=== PATIENT | male | born 1990 | race Asian ===

== ENCOUNTER 2018-06-01 10:25 | Inpatient (IN) | payer BC ==
[2018-06-01] MEDS ORDERED: Lidocaine 2% VISCOUS* 15 ML UDC PO ONE (12:35)
[2018-06-01] MEDS ORDERED: Al Hydrox/Mg Hydrox/Simet LIQ* 30 ML UDC PO ONE (12:35)
[2018-06-01 13:05] LABS: Hematocrit 43 % (42-52); Hemoglobin 14.3 g/dl (14.0-18.0); Mean Corpuscular HGB Conc 34 g/dl (31-36); Mean Corpuscular Hemoglobin 30 pg (27-31); Mean Corpuscular Volume 89 fL (80-94); Mean Platelet Volume 9.7 um3 (7.4-10.4); Platelet Count 171 10^3/ul (150-450); Red Blood Count 4.76 10^6/ul (4.00-5.40); Red Cell Distribution Width 13 % (10.5-15); White Blood Count 6.4 10^3/ul (3.5-10.8)
[2018-06-01 13:21] LABS: EGFR Non-African American 94.4 (>60)
--- NOTE | 2018-06-01 13:50 | ED ---
HPI Chest Pain - HPI Summary HPI Summary: Patient presents with left-sided chest pain radiating into his jaw and into his left arm/axillary region. This started at 9:45 this morning. 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 In the midst of this, he struck his Lt thumb on a metal box and seemed to be okay however minutes later the symptoms came on. He reports the metal box did not carry an electrical current and in fact the patient's girlfriend's father had removed the cover of the same box last night without any electrical conduction issues as well. He admits he took an anti-histamine prior to heading over there to work this morning as he's mildly allergic to their dog. He's taken an anti- histamine in the past w/o sx. Patient reports he's had these same sx in the past with B/L jaw pain, chest pain and shortness of breath. Once a few weeks ago and before that 3 years ago. He is not sure what triggered this then nor is he clear about why he had it today. He is also not clear about the length of time his symptoms lasted - possibly 30 minutes or maybe 15? He reports he took ibuprofen prior to arrival and has not had any pain in his jaw or arm since. He does have some mild residual burning sensation within his Lt chest. He is breathing easily and no SOB since episode this morning. His left chest is also tender to palpation and he admits to bench pressing 3 days ago. 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 He reports a reverse curvature in his cervical spine and headaches from time to time but rarely. No previous history of TMJ however he does still have his wisdom teeth and they cause some pain from time to time. He also denies any personal cardiac history although admits his grandfather in his 50's from a cardiac illness which he's not clear about. Father had HTN - no LA. Patient reports he went through an extensive workup for hypoglycemia last year. As result of his tests, it was decided he would do better with a high fat, high-protein, low-carb diet. Otherwise, he reports his sugar will spike up and then drop causing him to become hypoglycemic. He has not had any episodes like this since he's changed his diet. He also admits to eating acidic and spicy foods which can cause some indigestion for him at times. He's not sure if his symptoms today were triggered by indigestion as he had 2 cups of coffee this morning along with egg whites and spinach with hot sauce. He also admits he had spicy black morse burgers for dinner last night. Pt denies smoking, drinking ETOH and illicit drug use. He drinks 1-2 c coffee per day. Exercises. Denies recent travel, trauma, hormone use, cancer or hematological d/o, clots/PE/DVT. No personal or fam h/o aneurysm. - History of Current Complaint Chief Complaint: EDChestPainROMI Time Seen by Provider: 06/01/18 11:38 Hx Obtained From: Patient, Family/Rn Wellness - female partner Pain Intensity: 10 - Allergy/Home Medications Allergies/Adverse Reactions: Allergies Allergy/AdvReac Type Severity Reaction Status Date / Time No Known Allergies Allergy Verified 06/01/18 10:33 PMH/Surg Hx/FS Hx/Imm Hx Previously Healthy: Yes Endocrine/Hematology History: Reports: Hx Thyroid Disease - has been told to "monitor his levels" - no structural abnormalities, Other Endocrine/ Hematological Disorders - hypoglycemia Denies: Hx Anticoagulant Therapy, Hx Blood Disorders, Hx Diabetes, Hx Anemia , Hx Unexplained Bleeding, Hx Coagulopothy Cardiovascular History: Denies: Hx Aneurysm, Hx Angina, Hx Atrial Fibrillation, Hx Cardiac Arrest, Hx Congenital Heart Disease, Hx Coronary Artery Disease, Hx Deep Vein Thrombosis , Hx Embolism, Hx Hypercholesterolemia, Hx Hypertension, Hx Myocardial Infarction, Hx Peripheral Vascular Disease, Hx Syncope, Hx Valvular Heart Disease Respiratory History: Reports: Hx Seasonal Allergies - dogs Denies: Hx Asthma, Hx Chronic Obstructive Pulmonary Disease (COPD), Hx Pulmonary Embolism GI History: Reports: Hx Gastroesophageal Reflux Disease - doesn't treat Denies: Hx Cirrhosis, Hx Crohn's Disease, Hx Diverticulosis, Hx Gall Bladder Disease, Hx Gastrointestinal Bleed, Hx Hiatal Hernia, Hx Irritable Bowel, Hx Obstructive Bowel, Hx Ulcer Musculoskeletal History: Reports: Other Musculoskeletal History - neck muscle issues Sensory History: Reports: Hx Contacts or Glasses Opthamlomology History: Reports: Hx Contacts or Glasses Neurological History: Reports: Other Neuro Impairments/Disorders - " intermittent (peripheral) nerve issues" Denies: Hx Migraine Infectious Disease History: No Infectious Disease History: Denies: Traveled Outside the [place] in Last 30 Days - Family History Known Family History: Positive: Cardiac Disease - grandfather - in 50's; father - HTN - Social History Occupation: Employed Full-time Lives: With Family Alcohol Use: None Hx Substance Use: No Substance Use Type: Reports: None Hx Tobacco Use: No Smoking Status (MU): Never Smoked Tobacco Review of Systems Constitutional: Negative Negative: Fatigue Eyes: Negative Negative: Photophobia ENT: Other - jaw pain Positive: Nasal Discharge - mild. Negative: Dental Pain, Ear Ache Positive: Chest Pain. Negative: Palpitations Respiratory: Negative Gastrointestinal: Negative Negative: Vomiting, Nausea Positive: no symptoms reported Positive: Arthralgia, Myalgia Skin: Negative Neurological: Negative Psychological: Normal All Other Systems Reviewed And Are Negative: Yes Physical Exam Triage Information Reviewed: Yes Vital Signs On Initial Exam: Initial Vitals Temp Pulse Resp BP Pulse Ox 98.3 F 70 16 138/90 100 06/01/18 10:29 06/01/18 10:29 06/01/18 10:29 06/01/18 10:29 06/01/18 10:29 Vital Signs Reviewed: Yes Appearance: Positive: Well-Appearing, No Pain Distress, Well-Nourished Skin: Positive: Warm, Skin Color Reflects Adequate Perfusion, Dry Head/Face: Positive: Normal Head/Face Inspection Eyes: Positive: Normal, EOMI, Conjunctiva Clear ENT: Positive: Normal ENT inspection, Hearing grossly normal, Pharynx normal - mucosa moist Neck: Positive: Supple, Other: - mild TTP of paracervical mm and Lt masseter Respiratory/Lung Sounds: Positive: Clear to Auscultation, Breath Sounds Present. Negative: Rales, Rhonchi, Wheezes Cardiovascular: Positive: Normal, RRR, Pulses are Symmetrical in both Upper and Lower Extremities, S1, S2. Negative: Murmur, Rub, Leg Edema Left, Leg Edema Right Abdomen Description: Positive: Nontender - mild epigastric discomfort, No Organomegaly, Soft. Negative: Hernia @ Bowel Sounds: Positive: Present Musculoskeletal: Positive: Strength/ROM Intact, Pain @ - Lt chest pectoralis m w / mild TTP near sternum - no other areas are TTP Neurological: Positive: Normal, Sensory/Motor Intact, Alert, Oriented to Person Place, Time, CN Intact II-III, Reflexes Intact Psychiatric: Positive: Normal - concerned but polite, calm and cooperative Diagnostics - Vital Signs Vital Signs Temp Pulse Resp BP Pulse Ox 06/01/18 10:29 98.3 F 70 16 138/90 100 - Laboratory Lab Results: Lab Results 06/01/18 06/01/18 Range/Units 12:58 12:58 WBC 6.4 (3.5-10.8) 10^3/ul RBC 4.76 (4.00-5.40) 10^6/ul Hgb 14.3 (14.0-18.0) g/dl Hct 43 (42-52) % MCV 89 (80-94) fL MCH 30 (27-31) pg MCHC 34 (31-36) g/dl RDW 13 (10.5-15) % Plt Count 171 (150-450) 10^3/ul MPV 9.7 (7.4-10.4) um3 Sodium 138 (135-145) mmol/L Potassium 3.5 (3.5-5.0) mmol/L Chloride 105 (101-111) mmol/L Carbon Dioxide 25 (22-32) mmol/L Anion Gap 8 (2-11) mmol/L BUN 16 (6-24) mg/dL Creatinine 0.95 (0.67-1.17) mg/dL Est GFR ( Amer) 114.2 (>60) Est GFR (Non-Af Amer) 94.4 (>60) BUN/Creatinine Ratio 16.8 (8-20) Glucose 88 (70-100) mg/dL Calcium 10.0 (8.6-10.3) mg/dL Magnesium 1.9 (1.9-2.7) mg/dL TSH Pending Result Diagrams: 06/01/18 12:58 06/01/18 12:58 Lab Statement: Any lab studies that have been ordered have been reviewed, and results considered in the medical decision making process. Re-Evaluation - Re-Evaluation First Eval Change: Improved - pt reports Lt side CP has almost completely resolved w/ GI cocktail - he had some belching which he believes helped as well - no return of other sx while here Chest Pain Course/Dx - Course Course Of Treatment: Pt presents w/ Lt side CP, jaw pain and Lt arm w/ brief SOB pain at 9:45am today. Discussed these are classic sx for cardiac pathology and w/u should be performed. Discussed diff dx as well. He and female aircraft cleaning supervisor are requesting as minimal of testing as possible so we agreed upon CBC w/o diff , BMP, Mag, TSH and troponin level at 4 hours s/p CP since he was feeling much better although they were aware this is not ideal test panel and we could miss some things by doing this including early LA, PE, dissection, pneumothorax, etc. They also wanted to try the GI cocktail to see if this relieved his sx as he felt this was most likely muscle soreness and maybe some GERD. GI cocktail did help but 4 hour troponin returned at 0.43. His ECG was initially read as NSR w/ early repol in V2, V3. Repeat ECG is same or slightly better at 15:00 and no old ECG for comparison beyond today. Given these results, a D-dimer was added and a troponin was repeated to test for false positive. Pt and female aircraft cleaning supervisor aware of need to proceed w/ testing and that there is now higher concern for LA, PE. Discussed case w/ Dr. Johnson. Initially we ordered heparin for LA however after speaking w/ Dr. Kaur, will hold heparin and r/o PE, pericarditis. Advised to administer 3 adult doses ASA for anti-inflammatory effect as add CRP, ESR to assess for inflammation. A CTA will be added as well as although D-dimer is neg, PE cannot be completely ruled out. Discussed w/ pt who agrees to further testing and admission. Dr. Kaur surmises if a definitive cause of elevated troponins is not identified, an echocardiogram may be performed tomorrow. Discussed case w/ Dr. Perez who agrees to admit. Pt comfortable and vitals stable throughout his care. O2 and nitro were not ordered based on his lack of HTN, hypoxia and improved CP. Critical care time: 45 minutes - Diagnoses Provider Diagnoses: Chest pain, Elevated troponin level Discharge - Sign-Out/Discharge Documenting (check all that apply): Patient Departure - Discharge Plan Condition: Improved Disposition: ADMITTED TO [facility] - Billing Disposition and Condition Condition: IMPROVED Disposition: Admitted to [facility]
[2018-06-01] MEDS ORDERED: Aspirin 81 mg CHEW TAB* 81 MG TAB.CHEW PO ONE (14:58)
[2018-06-01] MEDS ORDERED: Heparin DRIP 25,000 UNITS(*) 25,000 UNITS/500 ML BAG IV SCH (16:00)
[2018-06-01] MEDS ORDERED: Aspirin TAB* 325 MG PO ONE (16:09)
[2018-06-01] MEDS ORDERED: Iohexol 350* (CONTRAST) 500 ML MDV IV ONE (16:38)
[2018-06-01] MEDS ORDERED: Acetaminophen TAB* 325 MG PO PRN (16:53)
--- NOTE | 2018-06-01 17:21 | RAD ---
INDICATION: Chest pain, shortness of breath left arm pain. COMPARISON: There are no prior studies available for comparison. TECHNIQUE: A CT angiogram of the chest was performed with intravenous following intravenous injection of 64 ml of Omnipaque 350 nonionic contrast. Contiguous axial sections were obtained from the lung apices through the lung bases. Images were reconstructed in the coronal and sagittal planes. FINDINGS: There is streak and motion artifact limiting the exam slightly. No intraluminal filling defect or embolism is seen within the pulmonary arteries. The heart is within normal limits in size. No pericardial effusion is present. The thoracic aorta is normal in caliber and demonstrates homogeneous contrast opacification. There is soft tissue density in the anterior mediastinum most consistent with residual thymus tissue. No significant enlarged mediastinal or hilar lymph nodes are seen. The lungs are clear. No pleural effusion is seen. There is a dorsal lumbar scoliosis convex toward the right in the dorsal region. No significant focal osseous abnormality is seen. IMPRESSION: SLIGHTLY LIMITED STUDY, NO EVIDENCE FOR PULMONARY EMBOLISM OR AORTIC DISSECTION.
[2018-06-01] MEDS ORDERED: Aspirin TAB* 325 MG PO PRN (17:40)
--- NOTE | 2018-06-01 18:39 | PN ---
Progress Note - Progress Note Date of Service: 06/01/18 Note: Note is made of continued troponin elevation. Patient reports feeling better, has persistent intermittent mild chest discomfort. Dr. Kaur updated. No new orders at this time. Plan for continued trending of troponins with EKGs. Patient will have aspirin for chest pain as needed. Plan for echo in AM.
--- NOTE | 2018-06-01 19:15 | HP ---
CC: Dr. Durbin* [facility] MEDICINE HISTORY AND PHYSICAL: DATE OF ADMISSION: 06/01/18 PRIMARY CARE PHYSICIAN: Dr. Durbin. ATTENDING PHYSICIAN: Dr. Talya Bliss* (dictation provided by Martha Dupree NP) . CHIEF COMPLAINT: Chest pain with jaw pain and pain radiating into the left arm. HISTORY OF PRESENT ILLNESS: Mr. Chance is a 28-year-old male with no significant past medical history, who presents today to the hospital after developing jaw pain, shortness of breath, chest tightness and left arm tingling. Mr. Chance states that he is normally very active. He participates in martial arts and also does heavy lifting at the gym frequently. He states with this activity he does not have chest pain, jaw pain or any such as those he experienced today. Today, he was pulling siding off his home. He states that this was not a very strenuous activity and he had only just gotten started, when he suddenly developed a feeling that it was difficult to take a breath. He had pain radiating into his both jaws that was quite intense. He went into the home and sat down and then developed chest tightness and subsequently left arm tingling. He became much more concerned and ultimately came to the hospital for evaluation. He states that his symptoms lasted up until about 40 minutes prior to the time of my examination. He did take ibuprofen at home prior to arrival. He states at this point that he has no pain , but that he does have a sensation of rubbing in the center of his chest when he takes a very deep breath. He does not have any pain when he lays flat and none of the pain seems to be exacerbated by position. The patient states that he has not had any recent illnesses. No cough or upper respiratory infection or nausea, vomiting, diarrhea, abdominal pain. He endorses having similar previous episodes in the past, but they seemed to be somewhat different. He states that about a week ago, he had an episode where he had jaw pain after eating dinner. It was initially thought that this was secondary to wisdom teeth that he has not had extracted yet, but he did notice some chest tightness as well. His notes that he complains of chest tightness at times related to anxiety episodes. Then, he does describe an episode 4 to 5 years ago where he had jaw pain that happened after playing a strenuous game of Frisbee. In the emergency room, Mr. Chance had labs, which showed a first troponin of 0.43, repeat troponin was 0.98. His CRP is less than 1. His ESR is also normal at 8. The remainder of his labs are unremarkable. His vitals are stable. His EKG shows some diffuse minimal ST elevations. PAST MEDICAL HISTORY: History of testicular torsion with surgery. MEDICATIONS: None. ALLERGIES: None. FAMILY HISTORY: The patient reports that his mother has diabetes and dad has hypertension and is on dialysis. His older brother is alive and well. He does not note any history of early heart disease in the family. SOCIAL HISTORY: No report of alcohol, tobacco or drug use. The patient states that his , Lupe, would be his healthcare proxy. REVIEW OF SYSTEMS: A 14-point review of systems was completed with Mr. Chance and all those not mentioned above were negative. PHYSICAL EXAMINATION GENERAL: Mr. Chance is sitting up in the bed with his at the bedside. He is in no acute distress. VITAL SIGNS: Blood pressure 130/49, heart rate 72, temperature 98.3, respiratory rate 15, O2 saturation 100% on room air. LUNGS: Clear to auscultation bilaterally with no accessory muscle use and good aeration. HEART: S1, S2. No murmur or gallop and regular. There is no rub appreciated today. ABDOMEN: Soft, nontender with bowel sounds positive x4. EXTREMITIES: No cyanosis or edema. NEURO: He is alert. He is oriented x3. He moves all extremities equally. There is no facial asymmetry or focal weakness. Extraocular movements are intact. SKIN: Intact. DIAGNOSTIC STUDIES/LAB DATA: WBC 6.4, hemoglobin 14.3, hematocrit 43, platelet count 171. ESR 8. D-dimer less than 200. Sodium 138, potassium 3.5, chloride 105, serum bicarbonate 25, BUN 16, creatinine 0.95, glucose 88. Troponin 0.43, repeated 1 hour later 0.98. CRP less than 1 and TSH 1.85. The EKG initially shows concern for some ST elevations, which are diffuse and minimal that have resolved on the repeat EKG performed in the emergency room. Chest/thorax CTA shows no evidence of pulmonary embolism or aortic dissection. ASSESSMENT AND PLAN: Mr. Chance is a 28-year-old male with no significant past medical history, who presents today to the hospital with concern for chest pain associated with jaw pain, shortness of breath and left arm tingling. In the emergency room, he has been found to have elevated troponins. Our plans are for observation in the hospital for the followin. Chest pain with elevated troponin. The patient has no risk factors for coronary artery disease nor does he have a family history of early heart disease. I reviewed the case with Dr. Kaur on the phone today and he suspects based on the overall picture that this is more likely to be reflective of myopericarditis. Our plans will be to trend the troponins with the next one due now. We will also have repeat EKGs with each troponin. The patient will have a transthoracic echocardiogram tomorrow. For any chest pain that develops he will have aspirin [address] Kaur will provide consultation. 2. DVT prophylaxis with early mobility. 3. Code status is full code. TIME SPENT: Approximately 60 minutes were spent on the admission of this patient, more than half time was spent with him at the bedside reviewing the events leading up to this hospitalization, performing the physical examination, and reviewing my plan of care. MARTHA DUPREE NP [id number]/[facility] #: [id number] JUAN
[2018-06-01] MEDS ORDERED: Nitroglycerin TAB 0.3 MG* 0.3 MG TAB SL PRN (21:41)
[2018-06-01] MEDS: Colchicine* 0.6 MG TAB PO SCH (22:22)
[2018-06-01] MEDS: Pantoprazole TAB (NF) 20 MG TAB PO SCH (22:23)
[2018-06-01] MEDS ORDERED: Aspirin EC TAB* 325 MG PO ONE (22:30)
--- NOTE | 2018-06-02 00:41 | CONS ---
CC: Dr. Durbin CARDIOLOGY CONSULTATION: DATE OF CONSULT: 06/01/18 REASON FOR EVALUATION: Chest pain, troponin elevation. HISTORY OF PRESENT ILLNESS: This is a very pleasant 28-year-old gentleman, who said he was in his usual state of health until about a week ago. He had some pain in his jaw and chest after eating and sitting and watching television. He said it was mild and resolved after 15 minutes. He did well again until today, he said, he got up and was going to help pull some shingles off at his in-laws' house. He said he had a couple cups of coffee and was working on the house. He said he slipped and hit his left thumb on a box on the side of the house. He said it was painful for a couple of minutes and 5 minutes later, he developed some chest tightness, shortness of breath, and jaw discomfort and the tingling of his left arm. He also had some gas and burning sensation with it. He said some burping would help relieve the symptoms, but it persisted that began about 9:45. Because of his symptoms, he decided to come to the emergency room, arrived about 10:45 or so. He had an EKG, which revealed sinus rhythm with ST elevation inferolaterally actually diffusely and was read as early repolarization. Subsequently, he had elevated troponin. In the meantime, his pain gradually resolved. He had taken 3 Motrin before he left for the hospital. By the time he got to the hospital, the worst of the pain was subsiding, the tingling had extended into his left hand. In ER, he got aspirin and a GI cocktail. He said it gradually resolved. After a total of about 3 hours, it was pretty much gone. He did say the pain was worse when he was lying flat for a CT scan and was worse with taking a deep breath, gradually diminished, and he says over the course of the day, it is barely perceptible. Sometimes, he feels when he takes a deep breath, at the end of breath, there is a little bit of irritation, but overall he feels back to normal. He denies any associated fevers, chills, sweats, nausea, vomiting, diarrhea, GI discomfort other than excess gas when he had the symptoms. He is accompanied by his , Lupe, and she denies any symptoms. He does say that he has had other episodes of chest tightness, he said one was about 6 years ago after playing fairly intense game of [place]ago, he developed jaw discomfort and achiness and chest tightness, which resolved after 15 to 30 minutes. He also had a very stressful job 2 years ago. When he said during this stressful job, he would sometime wake up the morning with a sensation of chest tightness, which would resolve over the course of a couple of hours. He said it was milder than the episodes he is having now. He said over the last year, he has had a far less stressful existence. 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 PAST MEDICAL HISTORY: Includes the chest pain as described above testicular torsion requiring surgery chilblains a couple of years ago when he went out in the cold. Mirgraine triggered by bright sunlight rxed with prn excedrin or nsaids. sleep disorder: h/o falling asleep easily after lunch. He had extensive evaluations, which include a sleep study, which he said was minimally abnormal. He did change his diet from carbs to protein at lunchtime and he said these symptoms have resolved. PAST SURGICAL HISTORY: Surgery for torsion of the testicle. MEDICATIONS: He takes no regular medications, but does occasionally take allergy pills and took an antihistamine in the morning before he went to work on the house because he was concerned about allergies to grass and pollen. He took fexofenadine without any vasoconstrictors in it. He takes prn excedrin and ibuprofen. ALLERGIES: He has no known drug allergies. FAMILY HISTORY: Includes mother who has diabetes. Father who has hypertension and diabetes, on dialysis. His paternal grandfather reportedly of cardiac disease in his 40s. Maternal grandfather had strokes in his 80s. SOCIAL HISTORY: He said he drinks 2 to 3 cups of coffee a day. He denies alcohol or recreational drug use. No energy drinks. He is , has no children. 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 His exercise is relatively limited. He occasionally does some weights at the gym once a week and he does some low-pacheco martial arts twice a week. He has stairs in the house, goes up and downstairs without problem. REVIEW OF SYMPTOMS: Review of symptoms x10 was negative except as above. PHYSICAL EXAM: He is a well-developed, thin gentleman, in no apparent distress. Dark skin consistent with his descent. Pulse is 70, blood pressure 111/64. No significant JVD. Carotids are 2+ without bruits. No cervical adenopathy or thyromegaly. Extraocular muscles intact. Sclerae anicteric. Cardiac Exam: S1, S2, with a physiologic split S2. No murmurs, gallops, or rubs. Chest was clear. No CVAT. Abdomen: Bowel sounds present, nontender. Femoral pulses are intact without bruits. Distal pulse intact. Motor strength 5/5 bilaterally. Alert, oriented x3. His weight was 162 pounds. DIAGNOSTIC STUDIES/LAB DATA: Labs include potassium of 3.5, BUN is 16, creatinine 0.95, magnesium 1.9. Initial troponin 0.43, 0.98, and at 1742, 3.18. CRP less than 1. TSH 1.85. Normal CBC. He did have a CT scan, which was low probability for pulmonary embolism. I did look at his coronary arteries; although we can exclude stenosis, there were no definite coroanary calcifications to my reading. His EKG from 1052 again revealed sinus rhythm with diffuse ST elevations of 1 to 2 mm inferiorly, anteriorly, and laterally. The repeat EKG from 1759 revealed some improvement in the ST elevation in III and increase in ST elevation in some other remaining leads. There also appeared to be some ND depression in multiple leads and subtle ND elevation in aVR. IMPRESSION AND PLAN: My impression is that Mr. Chance has a presentation with chest pain and troponin elevation and EKG changes. There are some elements of his story, which are suspicious for and consistent with myopericarditis. 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 Less likely possibilities include coroarny artery dissection and anomalous coronary arteries or stress cardiomyopathy or CAD. I did discuss my findings and plans for further workup with the patient and his and at his request, I discussed via telephone the condition with his brother, who works as a cardiac mangle tender. For the time being, I am recommending the followin. Follow serial troponins, EKGs, sed rate, CRP. 2. We will obtain an echocardiogram to assess wall motion and pericardial effusion. 3. For diagnosis of myopericarditis, we will consider further evaluation of his coronary anatomy either with CT angio or cath. 4. We will also consider possibility of vasomotor dysfunction and consider adding a calcium channel china if vasospasm is suspected. We did discuss about the potential of using calcium channel blockers and p.r.n. nitro sublingual for vasomotor dysfunction as well. Further recommendations will depend on his clinical course. [id number]/[facility] #: [id number] JUAN
--- NOTE | 2018-06-02 09:19 | ECHO ---
Patient: THALIA STACK [facility] Rec#: [id number] : 1990 Date: 06/02/2018 Age: 28y Height: 175.26 cm / 69.0 in Weight: 73.48 kg / 161.9 lbs Sex: M BSA: 1.89 Room#: [facility] Admit Date#: 06/01/2018 Type: Inpatient Referring: Martha Dupree NP Reading: Todd Kaur MD Utility Locate Technician: Tammie Johnson RDCS CC: Gifty LEE,Cali Transthoracic Echocardiogram Indication: Chest pain BP: 100/52 HR: 62 Rhythm: NSR Findings History: Recent chest pain, no known cardiac history. Technical Comments: The study quality is good. Completed at 0900. Left Ventricle: The left ventricular chamber size is normal. There is no left ventricular hypertrophy. Left ventricular systolic function is at the lower limits of normal. The estimated ejection fraction is 50-55%. subtle relative hypokinesis of the mid to distal anterior and apical segments. Normal left ventricular diastolic filling is observed. Left Atrium: The left atrial chamber size is normal. Right Ventricle: The right ventricular cavity size is normal. The right ventricular global systolic function is normal. Right Atrium: The right atrial cavity size is normal. Aortic Valve: The aortic valve is trileaflet. There is no evidence of aortic valve thickening. There is no evidence of aortic regurgitation. There is no evidence of aortic stenosis. Mitral Valve: The mitral valve leaflets do not appear thickened. There is a trace of mitral regurgitation. There is no evidence of mitral stenosis. Tricuspid Valve: The tricuspid valve leaflets are normal. There is a physiologic tricuspid regurgitation. The right ventricular systolic pressure is estimated at 21 mmHg. No pulmonary hypertension is noted. There is no tricuspid stenosis. Pulmonic Valve: The pulmonic valve appears normal. There is a trace pulmonic regurgitation. There is no pulmonic stenosis. Pericardium: There is no significant pericardial effusion. Aorta: There is no dilatation of the ascending aorta. There is no dilatation of the aortic arch. The aortic root is normal in size. Pulmonary Artery: The main pulmonary artery appears normal. Venous: The inferior vena cava is dilated. There is a greater than 50% respiratory change in the inferior vena cava dimension. Summary: There was not any prior study for comparison. Conclusions Left ventricular systolic function is at the lower limits of normal. The estimated ejection fraction is 50-55%; subtle relative hypokinesis of the mid to distal anterior and apical segments. There is a trace of mitral regurgitation. There is a physiologic tricuspid regurgitation. Measurements Name Value Normal Range RVIDd (AP) 2D 2.6 cm (0.9 - 2.6) RVDdMajor (2D) 3.5 cm (2.2 - 4.4) RAd ISD 4CH 4.4 cm (3.4 - 4.9) RA (A4C)W 4 cm (2.9 - 4.6) IVSd (2D) 0.8 cm (0.6 - 1) LVPWd (2D) 0.9 cm (0.6 - 1) LVIDd (2D) 4.8 cm (3.6 - 5.4) LVIDs (2D) 3.2 cm - LV FS (2D) 33 % (25 - 45) Aortic Annulus 2.4 cm (1.4 - 2.6) Ao root diameter (2D) 3.1 cm (2.1 - 3.5) Ascending Ao 2.8 cm (2.1 - 3.4) Aortic arch 2.3 cm (1.8 - 3.4) LA dimension (AP) 2D 3 cm (2.3 - 3.8) LAd ISD 4CH 3.9 cm (2.9 - 5.3) LA ISD 4CH W 3.7 cm (2.5 - 4.5) Name Value Normal Range LA ESV SP 4CH (A/L) 27 ml - LA ESV SP 2CH (A/L) 39 ml - LA ESV BP (A/L) 37 ml - LA ESV BP (A/L) index 20 ml/m2 - LA ESV SP 4CH (MOD) 21 ml - LA ESV SP 2CH (MOD) 34 ml - Name Value Normal Range MV E-wave Vmax 0.55 m/sec - MV deceleration time 219.1 msec - MV A-wave Vmax 0.47 m/sec - MV E:A ratio 1.16 ratio - LV septal e' Vmax 0.12 m/sec - LV lateral e' Vmax 0.17 m/sec - LV E:e' septal ratio 4.58 ratio - LV E:e' lateral ratio 3.24 ratio - Name Value Normal Range AV Vmax 0.9 m/sec - AV VTI 18.57 cm - AV peak gradient 3.27 mmHg - AV mean gradient 1.63 mmHg - LVOT Vmax 0.74 m/sec - LVOT VTI 12.91 cm - LVOT peak gradient 2.23 mmHg - LVOT mean gradient 1.21 mmHg - SHANIQUA Vmax 0.9 m/sec - Name Value Normal Range TR Vmax 1.8 m/sec - TR peak gradient 13 mmHg - RAP 8 mmHg - RVSP 21 mmHg - IVC diameter 2.2 cm - Name Value Normal Range PV Vmax 0.75 m/sec - PV peak gradient 2.31 mmHg -
[2018-06-02] MEDS: Colchicine* 0.6 MG TAB PO SCH ×2 (10:06→22:13)
[2018-06-02] MEDS: Omeprazole CAP* 20 MG PO SCH (10:06)
[2018-06-02] MEDS: Pantoprazole TAB (NF) 20 MG TAB PO SCH (10:07)
[2018-06-02] MEDS ORDERED: NS 0.9% 1000 ML* 500 ML IV SCH (11:45)
[2018-06-02] MEDS: Aspirin EC TAB* 325 MG PO SCH ×2 (12:22→22:13)
--- NOTE | 2018-06-02 16:04 | PN ---
Subjective Date of Service: 06/02/18 Interval History: No more chest pain. Feels good. No orthopnea, BARBOSA, cough, sore throat. Objective Active Medications: Acetaminophen (Tylenol Tab*) 650 mg PO Q6H PRN PRN Reason: PAIN Aspirin (Ecotrin Ec Tab*) 650 mg PO TID [facility] Stop: 06/07/18 23:59 Last Admin: 06/02/18 12:22 Dose: 650 mg Colchicine (Colcrys*) 0.6 mg PO BID [facility] Last Admin: 06/02/18 10:06 Dose: 0.6 mg Sodium Chloride (Ns 0.9% 1000 Ml*) 1,000 mls @ 100 mls/hr IV .per rate [facility] Nitroglycerin (Nitroglycerin Tab 0.3 Mg*) 0.3 mg SL .Q5MIN PRN PRN Reason: ANGINA Omeprazole (Prilosec Cap*) 20 mg PO DAILY@0730 [facility] Last Admin: 06/02/18 10:06 Dose: 20 mg Vital Signs - 8 hr 06/02/18 11:39 Temperature 98.5 F Pulse Rate 76 Respiratory 12 Rate Blood Pressure 117/66 (mmHg) O2 Sat by Pulse 97 Oximetry Oxygen Devices in Use Now: None Appearance: well appearing young man Eyes: No Scleral Icterus Ears/Nose/Mouth/Throat: NL Teeth, Lips, Gums Neck: NL Appearance and Movements; NL JVP Respiratory: Symmetrical Chest Expansion and Respiratory Effort, Clear to Auscultation Cardiovascular: NL Sounds; No Murmurs; No JVD, RRR, - - no rub Abdominal: NL Sounds; No Tenderness; No Distention Lymphatic: No Cervical Adenopathy Extremities: No Edema Skin: No Rash or Ulcers Neurological: Alert and Oriented x 3 Result Diagrams: 06/01/18 12:58 06/02/18 05:54 Additional Lab and Data: Lab Results 06/01/18 06/01/18 Range/Units 12:58 12:58 WBC 6.4 (3.5-10.8) 10^3/ul RBC 4.76 (4.00-5.40) 10^6/ul Hgb 14.3 (14.0-18.0) g/dl Hct 43 (42-52) % MCV 89 (80-94) fL MCH 30 (27-31) pg MCHC 34 (31-36) g/dl RDW 13 (10.5-15) % Plt Count 171 (150-450) 10^3/ul MPV 9.7 (7.4-10.4) um3 Sodium 138 (135-145) mmol/L Potassium 3.5 (3.5-5.0) mmol/L Chloride 105 (101-111) mmol/L Carbon Dioxide 25 (22-32) mmol/L Anion Gap 8 (2-11) mmol/L BUN 16 (6-24) mg/dL Creatinine 0.95 (0.67-1.17) mg/dL Est GFR ( Amer) 114.2 (>60) Est GFR (Non-Af Amer) 94.4 (>60) BUN/Creatinine Ratio 16.8 (8-20) Glucose 88 (70-100) mg/dL Calcium 10.0 (8.6-10.3) mg/dL Magnesium 1.9 (1.9-2.7) mg/dL TSH Pending Assess/Plan/Problems-Billing Assessment: 28 year old man with history of migraines admitted with chest pain, found to have elevated troponins. - Patient Problems (1) Myopericarditis Current Visit: Yes Status: Acute Code(s): I31.9 - DISEASE OF PERICARDIUM, UNSPECIFIED SNOMED Code(s): 502128833 Comment: plan for colchicine and aspirin atypical with normal inflammatory markers and no preceding viral illness, so plan for [facility] tomorrow to look for vasospasm, dissection, and myocarditis
[2018-06-03] MEDS: NS 0.9% 1000 ML* 1,000 ML IV SCH ×2 (08:00→17:48)
[2018-06-03] MEDS: Omeprazole CAP* 20 MG PO SCH (10:10)
[2018-06-03] MEDS: Aspirin EC TAB* 325 MG PO SCH ×2 (10:16→15:03)
[2018-06-03] MEDS: Colchicine* 0.6 MG TAB PO SCH (10:39)
[2018-06-03] MEDS ORDERED: Heparin 2 UNITS/ML IVPREMIX* 2,000 ML IV ONE (11:04)
[2018-06-03] MEDS ORDERED: Lidocaine 1%* 5 ML VIAL ONE ×2 (11:04→11:50)
[2018-06-03] MEDS ORDERED: Iohexol 350 (CONTRAST) 200 ML MDV IV ONE (11:05)
[2018-06-03] MEDS ORDERED: Midazolam* 1 MG/ML 10 ML VIAL (10 MG) ONE (11:06)
[2018-06-03] MEDS ORDERED: fentaNYL* 50 MCG/ML 2 ML VIAL (100 MCG VIAL) ONE (11:06)
[2018-06-03] MEDS ORDERED: nitroGLYCERIN DRIP* 25,000 MCG/250 ML BTL ONE (11:07)
[2018-06-03] MEDS ORDERED: VERAPAMIL 2.5 MG/ML 2 ML VIAL ** 5 mg/2 ml ONE (11:07)
[2018-06-03] MEDS ORDERED: Heparin(*) 1000 UNIT/ML 10 ML VIAL CATH LAB IV ONE (11:07)
--- NOTE | 2018-06-03 12:18 | PN ---
Subjective Date of Service: 06/03/18 Interval History: Pt reported Chest Discomfort this morning which resolved when he sat forward. he denies any further CP. He underwent cardiac cath this am and is currently laying flat on his back per protocol - laying flat he denies CP. Overall he reports he "feels fine". He Denies any pain. Brother and at bedside. We discussed again his history and chain of events leading up to coming to the hospital. Objective Active Medications: Acetaminophen (Tylenol Tab*) 650 mg PO Q6H PRN PRN Reason: PAIN Aspirin (Ecotrin Ec Tab*) 650 mg PO TID [facility] Stop: 06/07/18 23:59 Last Admin: 06/03/18 10:16 Dose: 650 mg Colchicine (Colcrys*) 0.6 mg PO BID [facility] Last Admin: 06/03/18 10:39 Dose: Not Given Sodium Chloride (Ns 0.9% 1000 Ml*) 1,000 mls @ 100 mls/hr IV .per rate [facility] Last Admin: 06/03/18 08:00 Dose: 100 mls/hr Nitroglycerin (Nitroglycerin Tab 0.3 Mg*) 0.3 mg SL .Q5MIN PRN PRN Reason: ANGINA Omeprazole (Prilosec Cap*) 20 mg PO DAILY@0730 [facility] Last Admin: 06/03/18 10:10 Dose: Not Given Vital Signs - 8 hr 06/03/18 07:53 Temperature 98.2 F Pulse Rate 66 Respiratory 16 Rate Blood Pressure 111/61 (mmHg) O2 Sat by Pulse 100 Oximetry Oxygen Devices in Use Now: None Appearance: well developed 28 yo male laying flat in bed A+O x3 in NAD Eyes: No Scleral Icterus, PERRLA Ears/Nose/Mouth/Throat: NL Teeth, Lips, Gums, Mucous Membranes Moist Neck: NL Appearance and Movements; NL JVP Respiratory: Symmetrical Chest Expansion and Respiratory Effort, Clear to Auscultation Cardiovascular: NL Sounds; No Murmurs; No JVD, RRR, No Edema, - - good pulses throughout in LE - warm, well perfused Abdominal: NL Sounds; No Tenderness; No Distention Extremities: No Edema, No Clubbing, Cyanosis Skin: No Rash or Ulcers, No Nodules or Sclerosis Neurological: Alert and Oriented x 3, NL Sensation Result Diagrams: 06/03/18 13:19 06/03/18 13:19 Additional Lab and Data: Lab Results 06/01/18 06/01/18 Range/Units 12:58 12:58 WBC 6.4 (3.5-10.8) 10^3/ul RBC 4.76 (4.00-5.40) 10^6/ul Hgb 14.3 (14.0-18.0) g/dl Hct 43 (42-52) % MCV 89 (80-94) fL MCH 30 (27-31) pg MCHC 34 (31-36) g/dl RDW 13 (10.5-15) % Plt Count 171 (150-450) 10^3/ul MPV 9.7 (7.4-10.4) um3 Sodium 138 (135-145) mmol/L Potassium 3.5 (3.5-5.0) mmol/L Chloride 105 (101-111) mmol/L Carbon Dioxide 25 (22-32) mmol/L Anion Gap 8 (2-11) mmol/L BUN 16 (6-24) mg/dL Creatinine 0.95 (0.67-1.17) mg/dL Est GFR ( Amer) 114.2 (>60) Est GFR (Non-Af Amer) 94.4 (>60) BUN/Creatinine Ratio 16.8 (8-20) Glucose 88 (70-100) mg/dL Calcium 10.0 (8.6-10.3) mg/dL Magnesium 1.9 (1.9-2.7) mg/dL TSH Pending Assess/Plan/Problems-Billing Assessment: 28 year old man with history of migraines admitted with chest pain, found to have elevated troponins. - Patient Problems (1) Myopericarditis Comment: Unclear etiology - atypical with normal inflammatory markers and no preceding viral illness. Trops teaked 5.42 now trending down. cardiac catherization today with Dr. Jackson showing no disease in the major arteries - in discussion with Dr. Jackson it is possible there could be some small vessle disease but unclear. Recommended giving 1x dose of cardizem CD 120 mg toinght and if he tolerates it will continue. Start atorvastatin. Will continue colchicine and decrease aspirin Dr. Jackson recommends a cardiac nuclear stress test at some point HEMALATHA, lyme serology pending repeat labs in am (2) DVT prophylaxis Status and Disposition: OBV - switch to inpatient for elevated troponins/myopericarditis .
[2018-06-03] MEDS ORDERED: NS 0.9% 1000 ML* 1,000 ML IV SCH (12:45)
[2018-06-03 13:32] LABS: ABS Basophils 0 10^3/ul (0-0.2); ABS Eosinophils 0.2 10^3/ul (0-0.6); ABS Lymphocytes 1.7 10^3/ul (1.0-4.8); ABS Monocytes 0.7 10^3/ul (0-0.8); ABS Nucleated RBC 0 10^3/ul; Eosinophil % 2.5 % (0-6); Hematocrit 42 % (42-52); Hemoglobin 14.2 g/dl (14.0-18.0); Lymphocyte % 19.9 % (25-47); Mean Corpuscular HGB Conc 34 g/dl (31-36); Mean Corpuscular Hemoglobin 30 pg (27-31); Mean Corpuscular Volume 90 fL (80-94); Mean Platelet Volume 10.2 um3 (7.4-10.4); Nucleated Red Blood Cells % 0.1; Platelet Count 165 10^3/ul (150-450); Red Blood Count 4.71 10^6/ul (4.00-5.40); Red Cell Distribution Width 13 % (10.5-15); White Blood Count 8.7 10^3/ul (3.5-10.8)
[2018-06-03 13:47] LABS: EGFR Non-African American 105.9 (>60)
[2018-06-03] MEDS ORDERED: Diltiazem CD CAP* 120 MG PO ONE (18:11)
[2018-06-03] MEDS ORDERED: Diltiazem TAB* 30 MG PO SCH (20:00)
[2018-06-03] MEDS ORDERED: Colchicine* 0.6 MG TAB PO SCH (21:00)
[2018-06-03] MEDS ORDERED: Atorvastatin* 20 MG TAB PO SCH (21:00)
--- NOTE | 2018-06-03 22:51 | CATH ---
CC: Dr. Cali Durbin; Dr. Todd Kaur of [facility] CARDIAC CATHETERIZATION REPORT: DATE OF PROCEDURE: 06/03/18 INDICATION FOR THE PROCEDURE: The patient with abnormal troponin with chest discomfort suggesting an acute coronary syndrome. PROCEDURE: Coronary arteriography, left heart catheterization, left ventriculography. PRECARDIAC CATHETERIZATION LABORATORY RESULTS: Hemoglobin and hematocrit of 14.3 and 43 with a platelet count of 171,000. BUN and creatinine of 17 and 1.0. Sodium 141, potassium 4.4, chloride 109, bicarb 22. EQUIPMENT UTILIZED: 1. A 11 cm, 5-[place] Adeline sheath for the right femoral approach. 2. Diagnostic coronary catheters: FL4 and FR4, 5-[place] diagnostic catheters. 3. Guidewire with a 175 length, 0.035 J-tipped guidewire. 4. The left heart catheterization catheter was a 5-[place], 145-degree angled pigtail catheter. 5. The closure device technique was a 5-[place] Mynx closure device. DESCRIPTION OF PROCEDURE: The patient was interviewed and examined on the floor of the hospital where the risks and benefits were explained. He understood and wished to proceed. He was brought to the cardiovascular laboratory where a formal time- out was performed. Of note, the radial artery had already been assessed under ultrasound and initially found to be acceptable as an approach. The right radial artery area and the right femoral and left femoral artery areas were prepped and draped in sterile fashion. Under ultrasound guidance, attempts were made to cannulate the right radial artery, but were unsuccessful with just needle approach. No introducer was ever placed. This approach was aborted with the right femoral artery approach then pursued. The right femoral artery area was anesthetized with 1% lidocaine. The right femoral artery was cannulated using an anterior only wall stick. The introducer was placed, the diagnostic catheters were utilized followed by the pigtail catheter for left-heart catheterization. Left ventriculography was performed utilizing a total of 24 cc of Omnipaque dye at a rate of 12 cc/sec. The catheter was then pulled back across the aortic valve to recheck gradient. At the end of the case, an injection was made into the right femoral artery sheath to assess eligibility to utilize closure device. It was found to be acceptable for this and as such, a 5-[place] Mynx closure device was deployed with good hemostasis. The total contrast used was 75 cc of Omnipaque dye. The radiation exposure included 5.1 minutes of fluoro time. The air kerma radiation was 474 milligray. The DAP radiation was 2966 microgray per metered squared. RESULTS: HEMODYNAMIC DATA: Left heart catheterization - revealed central aortic pressure of 106/64 with a mean of 84, left ventricular pressure 108 over left ventricular end diastolic pressure of 15. LEFT VENTRICULOGRAPHY: Performed in the NEW projection revealed symmetrical contraction of the left ventricle. There were no significant focal wall motion abnormality. The overall ejection fraction was estimated 55% to 60%. There was no mitral regurgitation identified. CORONARY ARTERIOGRAPHY: A. Left coronary artery: 1. Left main - short in nature and widely patent. 2. Left anterior descending artery - left anterior descending artery had very mild 10% to 15% narrowing in its proximal portion. The rest of the left anterior descending artery traversed to the apical region and on to the distal inferior wall. There were no focal stenosis seen. The first diagonal branch was a moderate size vessel, but the second and third diagonal branches were of relatively small caliber. 3. Circumflex artery - a nondominant vessel supplying a thin, short, first obtuse marginal branch followed by a moderate size mid, followed by a moderate size low- lying trifurcating obtuse marginal branch. The last 2 branches traversed to the inferior apical region. There were no focal stenosis seen. B. Right coronary artery - a dominant vessel supplying a bifurcating PDA that extended half the length of the inferior wall, continuing on to supply a 2 smaller caliber shorter posterior left ventricular branches. The proximal portion of the right coronary artery had a 25% to 30% fixed narrowing noted. OVERALL ASSESSMENT: Mild coronary artery disease with most significant lesion being 25% to 30% in the proximal right coronary artery. He has a minimal disease in the proximal LAD. No significant fixed stenotic lesions were seen, although the diagonal branches as well as the acute marginal branches of the right coronary artery appear to be small in caliber (in general, the most distal portion of all the vessel was somewhat small in caliber). Medical management should be aggressively pursued with statin therapy for his hyperlipidemia. Further followup for his cardiac status will be made as an outpatient through Dr. Todd Kaur, who saw him in primary consultation while in the hospital. The patient will have a wound check of his right groin area next week by my partner, Dr. Denney. [id number]/[facility] #: [id number] JUAN
[2018-06-04] MEDS: NS 0.9% 1000 ML* 1,000 ML IV SCH (05:58)
[2018-06-04 07:05] LABS: ABS Basophils 0 10^3/ul (0-0.2); ABS Eosinophils 0.4 10^3/ul (0-0.6); ABS Lymphocytes 1.8 10^3/ul (1.0-4.8); ABS Monocytes 0.7 10^3/ul (0-0.8); ABS Neutrophils 4.2 10^3/ul (1.5-7.7); ABS Nucleated RBC 0 10^3/ul; Eosinophil % 5.1 % (0-6); Hematocrit 42 % (42-52); Hemoglobin 14.4 g/dl (14.0-18.0); Mean Corpuscular HGB Conc 34 g/dl (31-36); Mean Corpuscular Hemoglobin 31 pg (27-31); Mean Corpuscular Volume 90 fL (80-94); Mean Platelet Volume 9.9 um3 (7.4-10.4); Nucleated Red Blood Cells % 0; Platelet Count 151 10^3/ul (150-450); Red Blood Count 4.66 10^6/ul (4.00-5.40); Red Cell Distribution Width 13 % (10.5-15); White Blood Count 7.1 10^3/ul (3.5-10.8)
[2018-06-04 07:27] LABS: EGFR Non-African American 103.1 (>60)
[2018-06-04] MEDS: Omeprazole CAP* 20 MG PO SCH (08:14)
--- NOTE | 2018-06-04 08:47 | PN ---
Subjective Date of Service: 06/04/18 Interval History: Pt reports he had some left chest wall discomfort (denies pain) when the other patient in his room was a CAT call and it was a stressful situation. He reports the chest discomfort lasted around 10 minutes w/o accompanied symptoms such as SOB/Diaphoresis/nausea or radiation- otherwise denies having any other CP. Reports good appetite and is currently eating breakfast. He has been ambulating to the bathroom and back reporting he feels steady on his feet. He denies dizziness. Patient reports he feels "good" this morning otherwise Objective Active Medications: Acetaminophen (Tylenol Tab*) 650 mg PO Q6H PRN PRN Reason: PAIN Aspirin (Ecotrin Ec Tab*) 325 mg PO DAILY [facility] Last Admin: 06/04/18 08:14 Dose: 325 mg Atorvastatin Calcium (Lipitor*) 20 mg PO 2100 [facility] Last Admin: 06/03/18 20:41 Dose: 20 mg Sodium Chloride (Ns 0.9% 1000 Ml*) 1,000 mls @ 100 mls/hr IV .per rate [facility] Last Admin: 06/04/18 05:58 Dose: 100 mls/hr Nitroglycerin (Nitroglycerin Tab 0.3 Mg*) 0.3 mg SL .Q5MIN PRN PRN Reason: ANGINA Omeprazole (Prilosec Cap*) 20 mg PO DAILY@0730 [facility] Last Admin: 06/04/18 08:14 Dose: 20 mg Vital Signs - 8 hr 06/04/18 06/04/18 03:24 07:16 Temperature 98.1 F Pulse Rate 69 74 Respiratory 16 14 Rate Blood Pressure 100/55 107/67 (mmHg) O2 Sat by Pulse 99 100 Oximetry Oxygen Devices in Use Now: None Appearance: well developed 28 yo male sitting up in bed in NAD, A+O x3 Eyes: No Scleral Icterus, PERRLA Ears/Nose/Mouth/Throat: NL Teeth, Lips, Gums, Mucous Membranes Moist Neck: NL Appearance and Movements; NL JVP Respiratory: Symmetrical Chest Expansion and Respiratory Effort, Clear to Auscultation Cardiovascular: NL Sounds; No Murmurs; No JVD, RRR, No Edema Abdominal: NL Sounds; No Tenderness; No Distention Extremities: No Edema, No Clubbing, Cyanosis Skin: No Rash or Ulcers, No Nodules or Sclerosis Neurological: Alert and Oriented x 3, NL Sensation, NL Muscle Strength and Tone Lines/Tubes/Other Access: Clean, Dry and Intact Peripheral IV Nutrition: Taking PO's Result Diagrams: 06/04/18 06:37 06/04/18 06:37 Additional Lab and Data: Lab Results 06/01/18 06/01/18 Range/Units 12:58 12:58 WBC 6.4 (3.5-10.8) 10^3/ul RBC 4.76 (4.00-5.40) 10^6/ul Hgb 14.3 (14.0-18.0) g/dl Hct 43 (42-52) % MCV 89 (80-94) fL MCH 30 (27-31) pg MCHC 34 (31-36) g/dl RDW 13 (10.5-15) % Plt Count 171 (150-450) 10^3/ul MPV 9.7 (7.4-10.4) um3 Sodium 138 (135-145) mmol/L Potassium 3.5 (3.5-5.0) mmol/L Chloride 105 (101-111) mmol/L Carbon Dioxide 25 (22-32) mmol/L Anion Gap 8 (2-11) mmol/L BUN 16 (6-24) mg/dL Creatinine 0.95 (0.67-1.17) mg/dL Est GFR ( Amer) 114.2 (>60) Est GFR (Non-Af Amer) 94.4 (>60) BUN/Creatinine Ratio 16.8 (8-20) Glucose 88 (70-100) mg/dL Calcium 10.0 (8.6-10.3) mg/dL Magnesium 1.9 (1.9-2.7) mg/dL TSH Pending Assess/Plan/Problems-Billing Assessment: 28 year old man with history of migraines admitted with chest pain, found to have elevated troponins. - Patient Problems (1) Elevated troponin Comment: Pericarditis? vs ACS? Unclear etiology - atypical with normal inflammatory markers and no preceding viral illness. Trops teaked 5.42 now trending down. cardiac catherization 06/[address] Jackson showing mild CAD with most significant lesion being 25-30% in the proximal right coronary artery and has minimal disease in the proximal LAD - no fixed stenotic lesions were seen with some noted diagonal branches and marginal branches of the right coronary appear to small in caliber. Recommends medical management with statin therapy for HLD. Follow up outpt nuclear stress test. Patient was given a 1x dose of cardizem 30 mg last night per recommendation by Dr. Jackson to see if he tolerates it - which it appears he did overnight - at his baseline his blood pressures run on the soft side and these were stable as well as pt denies any symptoms. Hold colchicine until it is decided if cardizem will be continued - there is an interaction of potential colchicine toxicity. Continue once a day aspirin, atorvastatin. HEMALATHA, lyme serology pending Right groin check next week with Dr. Denney (2) DVT prophylaxis Comment: pt is ambulating frequently Status and Disposition: inpatient for elevated troponins/myopericarditis .
[2018-06-04] MEDS ORDERED: Aspirin EC TAB* 325 MG PO SCH (09:00)
[2018-06-04] MEDS ORDERED: Diltiazem TAB* 30 MG PO ONE (16:35)
[2018-06-04] MEDS ORDERED: Diltiazem TAB* 30 MG ONE (16:36)
[2018-06-04 17:42] VITALS: BP 129/66
--- NOTE | 2018-06-05 02:17 | DS ---
CC: Dr. Durbin; Dr. Kaur* DISCHARGE SUMMARY: DATE OF ADMISSION: 06/01/18 DATE OF DISCHARGE: 06/04/18 PROVIDER: Jeanie Quinonez NP ATTENDING PHYSICIAN: Dr. Montano* (report dictated by Jeanie Quinonez NP). PRIMARY CARE PROVIDER: Dr. Durbin. ENTRY WRITER: Dr. Kaur. DISCHARGE DIAGNOSES: 1. Elevated troponins and chest pain, unclear etiology. 2. Mild coronary artery disease noted by cardiac catheterization showing mild coronary artery disease with most significant lesion being 25% to 30% in the proximal right coronary artery and minimal disease noted in the proximal left anterior descending with no fixed stenotic lesion. SECONDARY DIAGNOSIS: History of testicular torsion with surgery. DISCHARGE MEDICATIONS: New discharge medications: 1. Aspirin 325 mg p.o. daily. 2. Lipitor 20 mg p.o. daily. 3. Cardizem 30 mg p.o. q.12 hours. HISTORY OF PRESENT ILLNESS AND HOSPITAL COURSE: Please see history and physical by Martha Dupree NP, for full admission details, but in summary, this is a 28-year-old male with no significant past medical history who presented to the emergency department on 06/01/18 after he developed chest tightness radiating to the left arm and with reported jaw pain and shortness of breath. While he was pulling siding of house in which he injured his finger, experienced extreme pain and then developed these symptoms. He does report the week prior he had some mild chest discomfort as well. In the emergency department, on evaluation, he was found to have an initial troponin of 0.43 in which he was admitted to the hospitalist service to the telemetry unit for further evaluation. It initially was thought that most likely was reflective of myopericarditis; however, his inflammatory markers had been negative. He did undergo a chest thorax CTA, which showed no evidence of aortic dissection or pulmonary embolism. His troponins were trended, which peaked at 5.42. He was seen in consultation by Dr. Kaur on the day of admission. It was noted that the EKG, which revealed sinus rhythm with ST elevation inferolaterally, acutely diffuse and was read as early repolarization, which was suspicious, along with his story and presentation again it was suspicious and consistent with myopericarditis. He was started on aspirin and colchicine. He underwent an echocardiogram, which showed left ventricular systolic function at the lower limits of normal with an EF of 50% to 55% with subtle relative hypokinesis of the mid and distal anterior and apical segments. Trace mitral regurgitation and physiologic tricuspid regurgitation. There was no noted pericardial effusion. Recommendation was for the patient to undergo a cardiac catheterization in which he did so on 06/03/[address] Jackson, anvil seating press operator, who noted the patient to have "mild coronary artery disease with most significant lesion being 25% to 30% in the proximal right coronary artery with minimal disease in the proximal LAD. No significant fixed stenotic lesions were seen, although the diagonal branches as well as the acute marginal branches of right coronary artery appeared to be small in caliber." Recommendation was for medical management and to aggressively pursue statin therapy for his hyperlipidemia. The patient's overall ejection fraction during the cardiac catheterization was estimated to be 55% to 60% with no mitral regurgitation identified. In discussion with Dr. Jackson yesterday and today, recommendation was to start the patient on calcium channel [place] low dose and he was started on Cardizem 30 mg p.o. b.i.d. At his baseline, he has noted low blood pressures, but has tolerated this well. In regards to the colchicine and high dose aspirin, Dr. Jackson recommends discontinuing these as he does not have any elevated inflammatory markers and does not feel that it is myopericarditis. The etiology is unclear at this time and it is possible the patient exerted himself by pulling siding of the house, then injured his thumb and had a lot of pain. It is possible that had coronary artery spasm causing this cascade of chest pain and elevated troponins. See Dr. Long notes for full details. Since being in the hospital, the patient's chest pain has resolved, except he did experience mild mid left upper chest wall discomfort this morning during a clinical assessment team call of his roommate and the patient reports that he felt very stressed and developed mid sensation in his chest wall that lasted approximately 10 minutes and resolved. Therefore, most likely that was secondary to anxiety. The patient had Lyme serology as well as an HEMALATHA sent to the lab; however, these are still pending at the time of dictation and his primary care provider will need to follow up on these. Discussed the hospitalization as well as discharge plan with the patient and his . As well discussed the importance of healthy diet. Again, etiology is unclear and per Dr. Jackson, there were no known stenotic lesions and the patient has mild coronary artery disease in which the plan will be to medically optimize the patient with calcium channel [place] if his blood pressure tolerates as well as statin therapy. Recommendation for a cardiac nuclear stress test in approximately a month to see how he tolerates exercising. The patient will follow up with Dr. Kaur as an outpatient. Other labs throughout hospitalization has been unremarkable; however, he does have a slightly abnormal lipid profile with triglycerides of 106, cholesterol of 211, LDL of 150, HDL of 39.9 and he has remained hemodynamically stable throughout hospitalization. DISCHARGE PLAN: 1. The patient will be discharged to home. 2. Follow up with primary care provider, Dr. Durbin, within 3 to 7 days. 3. Follow up with Dr. Kaur within 1 to 2 weeks. 4. Follow up with Dr. Denney for right groin wound check on 06/10/18 at 3 p.m. The patient was given post-cath instructions on discharge and was informed to come to the emergency department with any concerning or worsening symptoms. TIME SPENT: Approximately 75 minutes was spent on this discharge. JEANIE QUINONEZ NP [id number]/[facility] #: [id number] JUAN
[2018-06-05] MEDS ORDERED: Diltiazem TAB* 30 MG PO ONE (16:15)
== END 2018-06-04 17:40 | disposition home or self-care (01) | DRG 861 ==
LOC: ED 10:25 → MEDTELE 17:11 → OBSVTOIN 06-03 11:09
PROVIDERS: ADMIT Internal Medicine; ATTEND Internal Medicine
PROC: B211YZZ Fluoroscopy of Multiple Coronary Arteries using Other Contrast (ICD-10-PCS; 2018-06-03)
PROC: B215YZZ Fluoroscopy of Left Heart using Other Contrast (ICD-10-PCS; 2018-06-03)
PROC: 4A023N7 Measurement of Cardiac Sampling and Pressure, Left Heart, Percutaneous Approach (ICD-10-PCS; principal; 2018-06-03 11:30)
DX: R74.8 Abnormal levels of other serum enzymes (principal); R07.9 Chest pain, unspecified; I25.10 Atherosclerotic heart disease of native coronary artery without angina pectoris; R68.84 Jaw pain; E78.5 Hyperlipidemia, unspecified; Z83.3 Family history of diabetes mellitus; Z82.49 Family history of ischemic heart disease and other diseases of the circulatory system; Z84.1 Family history of disorders of kidney and ureter; Z82.3 Family history of stroke
CPT/HCPCS: 36415; 71275; 76937; 80048; 80061; 82550; 82553; 83735; 84443; 84484; 85025; 85027; 85379; 85652; 85730; 86038; 86140; 86618; 93005; 93306; 93458; 99156; 99157; 99283; A9270-GY; C1887; G0378; J1644; J2250; J3010; Q9967